=== PATIENT | female | born 1965 | race Caucasian/White ===

== ENCOUNTER 2016-08-09 08:17 | Inpatient (IN) | payer OTHER ==
[~2016-08-09] VITALS: Ht 157.5 cm; Wt 64.4 kg
[2016-08-09 08:26] VITALS: BP 104/60
--- NOTE | 2016-08-09 08:32 | NUR ---
Pt ambulated to bed 7 at this time.
[2016-08-09] MEDS ORDERED: ONDANSETRON 4 MG/2 ML VIAL IVP ONE (08:50)
[2016-08-09] MEDS ORDERED: NACL 0.9% 1,000 ML IV ONE (08:50)
[2016-08-09] MEDS ORDERED: fentaNYL 0.05 MG/ML VIAL IVP ONE (08:50)
--- NOTE | 2016-08-09 09:00 | NUR ---
AAO, COOPERATIVE PT TAKEN TO CT VIA WHEEL CHAIR BY EXPERIMENTAL DISPLAY BUILDER
--- NOTE | 2016-08-09 09:00 | NUR ---
PATIENT PRESENTS TO ED WITH W/C/O ABDOMINAL PAIN X3 DAYS; DENIES DIARRHEA; SKIN IS PINK/WARM/DRY; AAOX4 WITH EVEN AND STEADY GAIT; LUNGS CLEAR BL; HR EVEN AND REGULAR; PT DENIES ANY FEVER, CP, SOB, OR COUGH AT THIS TIME; PATIENT STATES PAIN OF 8/10 AT THIS TIME; VSS; PATIENT POSITIONED FOR COMFORT; HOB ELEVATED; BEDRAILS UP X2; BED DOWN. ER MD MADE AWARE OF PT STATUS.
[2016-08-09] MEDS ORDERED: POTASSIUM CHL 20 MEQ/NACL 0.9% 1,000 ML IV ONE (10:15)
[2016-08-09] MEDS ORDERED: cefTRIAXone 1,000 MG VIAL ONE (10:20)
[2016-08-09] MEDS ORDERED: PHENAZOPYRIDIN200 M3 PO (10:22)
[2016-08-09] MEDS ORDERED: TYLENOL WITH CO1 TA1 PO (10:22)
[2016-08-09] MEDS ORDERED: PRILOSEC OTC20 MG PO (10:22)
[2016-08-09] MEDS ORDERED: CIPRO250 M2 PO (10:22)
--- NOTE | 2016-08-09 10:57 | NUR ---
REPORT CALLED TO MARIANO ON MST.
--- NOTE | 2016-08-09 10:57 | NUR ---
Patient will be admitted to care of DR TELLEZ. Admited to [facility]. Will go to [id number]. Belongings list completed. Report to AMANDA QUINTANA.
[2016-08-09] MEDS ORDERED: fentaNYL 0.075 MG/HR PATCH TD SCH (11:00)
[2016-08-09 11:15] VITALS: BP 105/57
--- NOTE | 2016-08-09 11:15 | NUR ---
RECEIVED REPORT FROM ER NURSE. PT'S AT BEDSIDE. PT IS AAOX4, DENIES PAIN/DISCOMFORT AT THIS TIME. IV IS PATENT AND FLOWING. SKIN IS DRY AND INTACT. PT IS ON ROOM AIR, VITALS STABLE. ORIENTED PT TO HOSP ENVIRONMENT. CALL LIGHT WITHIN REACH. WILL CONTINUE TO MONITOR.
[2016-08-09 12:00] VITALS: BP 105/57
[2016-08-09] MEDS: NACL 0.9% 1,000 ML IV SCH ×2 (12:59→22:39)
[2016-08-09] MEDS ORDERED: ONDANSETRON 4 MG/2 ML VIAL IVP PRN (13:00)
[2016-08-09] MEDS ORDERED: PIPERACILLIN/TAZOBACTAM 3.375 GM in DEXTROSE 5% 50 ML IV SCH (13:00)
[2016-08-09] MEDS ORDERED: HYDROmorphone 1 MG/ML AMP IVP PRN (13:00)
[2016-08-09] MEDS ORDERED: LORazepam 2 MG/ML VIAL IVP PRN (13:00)
--- NOTE | 2016-08-09 14:37 | NUR ---
PATCH REMOVED, WILL CONTINUE TO MONITOR.
[2016-08-09 16:00] VITALS: BP 99/54
--- NOTE | 2016-08-09 17:13 | NUR ---
VS REMAIN STABLE. WILL CONTINUE TO MONITOR.
--- NOTE | 2016-08-09 19:30 | NUR ---
ENDORSED TO LATHE TURNER NURSE FOR CONTINUITY OF CARE.
--- NOTE | 2016-08-09 19:45 | NUR ---
RECEIVED PT IN STABLE CONDITION FROM AM NURSE. AWAKE,ALERT AND ORIENTED X4, UKRAINIAN SPEAKING. AMBULATORY. MED SURG PT. WITH FAMILY MEMBERS AT BEDSIDE. NO C/O ANY ABDOMINAL PAIN AT THIS TIME. HAS IVF INFUSING WELL ON THE RT AC #22. ANOTHER HL ON LT AC #20. PLAN OF CARE DISCUSSED AND VERBALIZED UNDERSTANDING. CALL LIGHT PLACED WITHIN EASY REACH. WILL CONTINUE TO MONITOR.
--- NOTE | 2016-08-09 19:45 | NUR ---
RECEIVED PT IN STABLE CONDITION FROM AM NURSEDemetria AWAKE,ALERT AN DORGRACE X4, Addendum: 08/09/16 at 1951 by Julissa Love RN CANCEL ABOVE NOTES.
[2016-08-09 20:00] VITALS: BP 106/59
--- NOTE | 2016-08-09 20:00 | NUR ---
HAS A TEMP 100.9 COOLING MEASURES DONE. WILL CONTINUE TO MONITOR.
[2016-08-09] MEDS: PIPER/TAZO 3.375GM/D5W PREMIX 50 ML IV SCH (20:47)
--- NOTE | 2016-08-09 21:00 | NUR ---
TEMP RECHECKED 100. STILL CONTINUE WITH COOLING MEASURES.
[2016-08-10 00:42] VITALS: BP 98/51
--- NOTE | 2016-08-10 00:42 | NUR ---
LATEST TEMP 99.5 (ORAL ). NO C/O ANY PAIN NOTED . WILL CONTINUE TO MONITOR.
--- NOTE | 2016-08-10 02:40 | NUR ---
PT IS AWAKE. NO C/O OF ANY DISCOMFORT NOR PAIN NOTED.
--- NOTE | 2016-08-10 04:15 | NUR ---
LATEST TEMP CHECKED RESULT 99.2 (ORAL). NO C/O PAIN NOTED.
[2016-08-10] MEDS: PIPER/TAZO 3.375GM/D5W PREMIX 50 ML IV SCH ×3 (04:32→20:17)
--- NOTE | 2016-08-10 06:48 | NUR ---
LAB CALLED FOR CRITICAL K LEVEL 2.9 ,WILL ABBEY HOWARD.
--- NOTE | 2016-08-10 06:53 | NUR ---
PAGED DR. TELLEZ. DR. LOPES WATER SOFTENER SERVICER. WILL WAIT FOR CALL BACK.
--- NOTE | 2016-08-10 07:16 | NUR ---
ENDORSED PT IN STABLE CONDITION TO AM NURSE.
--- NOTE | 2016-08-10 07:43 | NUR ---
RECEIVED REPORT FROM AMANDA EDUARDO. PT IS AAOX4. PT ON ROOM AIR WITH NO S/S OF DISTRESS NOTED. IV TO RIGHT AC #22 AND LEFT AC #20, PATENT AND INTACT. SKIN INTACT. NO N/V OR PAIN INDICATED. ALL SAFETY PRECAUTIONS IN PLACE, SIDE RAILSX2, BED IN LOW POSITION, AND CALL LIGHT WITHIN REACH. WILL CONTINUE TO MONITOR.
[2016-08-10 08:00] VITALS: BP 96/53
[2016-08-10] MEDS: NACL 0.9% 1,000 ML IV SCH ×2 (08:14→18:59)
--- NOTE | 2016-08-10 08:23 | NUR ---
PATIENT HAS BEEN SCREENED AND CATEGORIZED MODERATE NUTRITION RISK. PATIENT WILL BE SEEN WITHIN 3-5 DAYS OF ADMISSION. 08/11/16-08/13/[address]
[2016-08-10] MEDS: ENOXAPARIN 40 MG/0.4 ML SYR SUBQ SCH (08:28)
--- NOTE | 2016-08-10 08:30 | NUR ---
PT TOLERATED MEDS WELL. WILL CONTINUE TO MONITOR.
--- NOTE | 2016-08-10 08:34 | NUR ---
TALKED TO DR TELLEZ, NOTIFIED OF CRITICAL POTASSIUM AT 2.9. OK TO ADMINISTER 60 MEQ OF POTASSIUM IV WITH LIDOCAINE TO INFUSE OVER 6 HOURS. WILL FOLLOW UP ON ORDERS.
--- NOTE | 2016-08-10 09:08 | NUR ---
TALKED TO LINDY-PHARMACIST. PHARMACIST TO MODIFY POTASSIUM IV ORDER. WILL FOLLOW UP.
[2016-08-10] MEDS ORDERED: POTASSIUM CHLORIDE 60 MEQ, LIDOCAINE 1% 25 MG in NACL 0.9% 500 ML IV SCH (09:30)
--- NOTE | 2016-08-10 09:55 | NUR ---
PT TOLERATED MEDS WELL. WILL CONTINUE TO MONITOR.
--- NOTE | 2016-08-10 10:40 | NUR ---
FAMILY PRESENT AT BEDSIDE. NO DISTRESS NOTED. ALL NEEDS MET AT THIS TIME.
--- NOTE | 2016-08-10 12:36 | NUR ---
PT TOLERATED MEDS WELL. WILL CONTINUE TO MONITOR.
--- NOTE | 2016-08-10 12:43 | NUR ---
PAGED DR SMITH, AWAITING CALLBACK.
--- NOTE | 2016-08-10 13:00 | NUR ---
DR VÁZQUEZ IN TO SEE PT. SURGEON TO PERFORM LAP APPY. WILL FOLLOW UP ON ORDERS AND OBTAIN PT'S CONSENT.
[2016-08-10] MEDS ORDERED: SUCCINYLCHOLINE CHLORIDE 200 MG/10 ML VIAL IVP ONE (13:20)
[2016-08-10] MEDS ORDERED: ROCURONIUM 50 MG/5 ML VIAL IV ONE (13:20)
[2016-08-10] MEDS ORDERED: PROPOFOL 200 MG/20 ML VIAL IV ONE (13:20)
[2016-08-10] MEDS ORDERED: SEVOFLURANE 250 ML BTL INH ONE (13:20)
[2016-08-10] MEDS ORDERED: ONDANSETRON 4 MG/2 ML VIAL ONE (13:20)
[2016-08-10] MEDS ORDERED: DEXAMETHASONE 4 MG/ML VIAL ONE (13:20)
[2016-08-10] MEDS ORDERED: GLYCOPYRROLATE 0.2 MG/ML VIAL ONE (13:20)
--- NOTE | 2016-08-10 13:20 | NUR ---
PT TAKEN OUT OF UNIT TO SURGERY.
[2016-08-10] MEDS ORDERED: MIDAZOLAM 2 MG/2 ML VIAL ONE (13:31)
[2016-08-10] MEDS ORDERED: MEPERIDINE 50 MG/ML SYR ONE (13:32)
[2016-08-10] MEDS ORDERED: fentaNYL 0.05 MG/ML VIAL ONE (13:32)
[2016-08-10] MEDS: LACTATED RINGERS 1,000 ML IV SCH ×2 (13:56→22:16)
[2016-08-10] MEDS ORDERED: ONDANSETRON 4 MG/2 ML VIAL IVP PRN (14:00)
[2016-08-10] MEDS ORDERED: diphenhydrAMINE 50 MG/ML VIAL IVP PRN (14:00)
[2016-08-10] MEDS ORDERED: MEPERIDINE 25 MG/ML SYR IVP PRN (14:00)
[2016-08-10] MEDS ORDERED: HYDROmorphone 1 MG/ML AMP IVP PRN ×2 (14:00→15:40)
[2016-08-10] MEDS: BUPIVACAINE-MPF/EPI 0.5% 30 ML VIAL INJ ONE ×2 (14:07→15:18)
--- NOTE | 2016-08-10 14:07 | NUR ---
CM NOTE INITIAL REVIEW SENT TO [facility] FAX# [phone] ATTN: NOVEMBER # [phone]
--- NOTE | 2016-08-10 15:03 | NUR ---
ENDORSED CARE TO AMANDA KHOURY. PT IN STABLE CONDITION.
--- NOTE | 2016-08-10 15:29 | NUR ---
CALLED DR. SMITH'S OFFICE AND INFORMED THE CERAMIC CAPACITOR PROCESSOR THAT DR. MEZA WILL SEE PATIENT.
[2016-08-10 16:30] VITALS: BP 116/71
--- NOTE | 2016-08-10 16:30 | NUR ---
RECEIVED REPORT AND PT FROM OR. PT IS AWAKE, A/O X 4. NO S/S OF ACUTE DISTRESS OR DISCOMFORT. HUSEYIN DRAIN PRESENT. EXPLORATORY LAPROSCOPIC INCISION PRESENT. SURGICAL INCISION FROM OPEN APPENDECTOMY PRESENT. NGT TO LOW INTERMITTENT SUCTION. CALL LIGHT WITHIN REACH. WILL CONTINUE TO MONITOR.
--- NOTE | 2016-08-10 19:22 | NUR ---
ENDORSED REPORT TO DRONE SOFTWARE DEVELOPMENT ENGINEER AMANDA SAEED. PT IS AWAKE, FAMILY AT BEDSIDE. PT HAS NO S/S OF ACUTE DISTRESS OR DISCOMFORT. PT IN STABLE CONDITION. CALL LIGHT WITHIN REACH.
--- NOTE | 2016-08-10 19:28 | NUR ---
RECEIVED REPORT FROM IRAIDA RN, AT BEDSIDE. INITIAL ASSESSMENT AND BODY CHECK DONE. PATIENT AAO X 4, ABLE TO FOLLOW COMMAND AND MAKE NEEDS KNOWN AND AMBULATORY BY SELF WITH STEADY GAIT. PATIENT CURRENTLY LYING DOWN ON THE BED AND TALKING TO HER . NO S/S OF DISTRESS OR ANY POTENTIAL COMPLICATION NOTED. PATIENT DENIED OF PAIN AT THIS TIME. VERIFIED LT NG-TUBE PLACEMENT AND IT IS IN THE RIGHT PLACE; ATTACHED TO LOW INTERMITTENT SUCTION AND NO RESIDUAL OBTAINED. 2 BAND AIDS DRESSING ON LOWER ABDOMEN REMAINS CLEAN/DRY WITH HUSEYIN DRAIN DRAINING WITH 40 ML SEROSANGUINEOUS. DISCUSSED PLAN OF CARE, PAIN MANAGEMENT AND MEDICATION REGIMEN WITH PATIENT AND PATIENT VERBALIZED UNDERSTANDING. PLACED PATIENT ON SAFETY/ASPIRATION PRECAUTIONS AND WILL CONTINUE TO MONITOR. CALL LIGHT LEFT WITHIN REACH.
[2016-08-10 20:00] VITALS: BP 119/75
--- NOTE | 2016-08-10 21:25 | NUR ---
ADMINISTERED DUE MEDICATIONS MD'S ORDERED WITH EDUCATION GIVEN. PATIENT COMPLYING WITH MEDICATION AND RESTING COMFORTABLY IN BED. ALL NEEDS ARE ATTENDED. KEPT PATIENT IN COMFORTABLE POSITION/WARM AND WILL CONTINUE TO MONITOR.
[2016-08-11] VITALS: BP 113/69
--- NOTE | 2016-08-11 00:27 | NUR ---
PATIENT RESTED COMFORTABLY IN BED, EASILY AROUSED AND REMAINED IN STABLE CONDITION. NO DRESSING CHANGE REQUIRED AT THIS TIME. WILL CONTINUE TO MONITOR.
[2016-08-11] MEDS: NACL 0.9% 1,000 ML IV SCH ×2 (01:17→12:40)
--- NOTE | 2016-08-11 02:00 | NUR ---
ASSISTED PATIENT TO THE RESTROOM TO VOID AND WALKED BACK TO BED SAFELY. PATIENT TOLERATED ACTIVITY WELL. CHANGED THE BEDSHEET AND KEPT PATIENT WARM. WILL CONTINUE TO MONITOR.
[2016-08-11] MEDS: PIPER/TAZO 3.375GM/D5W PREMIX 50 ML IV SCH ×3 (04:08→20:40)
--- NOTE | 2016-08-11 05:00 | NUR ---
PATIENT IS CLINICALLY STABLE WITHOUT S/S OF DISTRESS NOTED. WILL CONTINUE TO MONITOR.
[2016-08-11] MEDS: LACTATED RINGERS 1,000 ML IV SCH (06:31)
--- NOTE | 2016-08-11 07:12 | NUR ---
ENDORSED PLAN OF CARE TO AMANDA SHAH, AT BEDSIDE. PATIENT RESTED WELL THROUGHOUT THE SHIFT AND REMAINED IN STABLE CONDITION. NO APPARENT DISTRESS NOTED.
--- NOTE | 2016-08-11 07:30 | NUR ---
RECEIVED REPORT FROM WORLD RENOWNED CHEF AND RESTAURANT OWNER NURSE CHRISTOPHE AT BEDSIDE FOR CONTINUITY OF CARE. PATIENT IS AWAKE, ALERT, ORIENTED X4. IV ON THE LEFT AC INTACT AND PATENT WITH NS INFUSING AT 100ML/HR. OTHER IV ON THE RIGHT AC SALINE LOCK, INTACT AND PATENT. INITIAL ASSESSMENT DONE. NG- TUBE IN PLACED TO THE LEFT NARES. INTACT AND PATENT ON INTERMITTENT SUCTION. [address] ON THE ABDOMEN. INTACT AND DRY S/P LAP APPY. ON ROOM AIR NO S/S OF SOB. VITALS TAKEN AND WITHIN THE NORMAL LIMIT. PATIENT DENIED ANY PAIN. SAFETY CHECKED DONE AND WILL CONTINUE TO MONITOR. CALL LIGHT WITHIN REACH.
[2016-08-11 07:59] VITALS: BP 128/72
[2016-08-11] MEDS: ENOXAPARIN 40 MG/0.4 ML SYR SUBQ SCH (09:13)
--- NOTE | 2016-08-11 09:15 | NUR ---
DUE MED GIVE, PATIENT TOLERATED WELL. WILL CONTINUE TO MONITOR.
--- NOTE | 2016-08-11 10:00 | NUR ---
PATIENT IS CLEANED. COMPLAINED NO PAIN. WILL CONTINUE TO MONITOR.
--- NOTE | 2016-08-11 11:32 | NUR ---
CM NOTE CONCURRENT REVIEW SENT TO [facility] FAX# [phone] ATTN: NOVEMBER # [phone]
--- NOTE | 2016-08-11 12:43 | NUR ---
ISAK SIMPSON. ASSISTED PATIENT TO THE BATHROOM AND BACK TO BED. STABLE GAIT.
--- NOTE | 2016-08-11 13:22 | NUR ---
PATIENT LYING IN BED RESTING. NO S/S OF DISTRESS. CALL LIGHT WITHIN REACH.
--- NOTE | 2016-08-11 15:03 | NUR ---
PATIENT IS ASLEEP, NO S/S OF DISTRESS. WILL CONTINUE TO MONITOR.
--- NOTE | 2016-08-11 15:34 | NUR ---
NG-TUBE REMOVED, CATH END INTACT. NO S/S OF BLEEDING. PATIENT TOLERATED WELL AND DENIED ANY PAIN. WILL CONTINUE TO MONITOR.
[2016-08-11 16:00] VITALS: BP 122/72
[2016-08-11] MEDS: DEXT 5% / NACL 0.45% 1,000 ML IV SCH (16:26)
--- NOTE | 2016-08-11 16:43 | NUR ---
VITALS TAKEN AND WITHIN THE NORMAL LIMIT. PATIENT DENIED ANY PAIN AT THIS TIME. CALL LIGHT WITHIN REACH.
--- NOTE | 2016-08-11 18:21 | NUR ---
RESTING IN BED, NO COMPLAINED OF ANY PAIN AT THIS TIME. HUSEYIN DRAINAGE EMPTIED WITH DRAINAGE OF 30ML. WILL CONTINUE TO MONITOR. CALL LIGHT WITHIN REACH
--- NOTE | 2016-08-11 19:10 | NUR ---
RECEIVED REPORT AT BEDSIDE FROM AMANDA RESTREPO. INITIAL ASSESSMENT COMPLETED. PT AAOX4. PT AMBULATORY. PT HAS IV TO LEFT AC G 20 INFUSING FLUIDS WELL AND RIGHT AC 22 SL. PT HAS TWO ABDOMINAL DRESSINGS S/P LAP APPY AND A HUSEYIN DRAIN. SCDS ON. ORIENTED PT TO ROOM AND SURROUNDINGS AND USE OF CALL LIGHT. FAMILY AT BEDSIDE. EXPLAINED PLAN OF CARE TO PT AND SHE VERBALIZES UNDERSTANDING. SAFETY MEASURES IN PLACE, WILL CONTINUE TO MONITOR PT.
--- NOTE | 2016-08-11 19:30 | NUR ---
REPORT GIVEN TO TRAVEL INFORMATION CENTER SUPERVISOR NURSE OTTO AT BEDSIDE FOR CONTINUITY OF CARE. PATIENT ON STABLE CONDITION AND ALL NEEDS ARE MET AT THIS TIME.
--- NOTE | 2016-08-11 20:43 | NUR ---
2100 ZOSYN INFUSING NOW. PT STABLE, RESTING IN BED. CALL LIGHT WITHIN REACH.
--- NOTE | 2016-08-11 23:30 | NUR ---
ASSISTED PT TO THE RESTROOM, PT STABLE, CALL LIGHT WITHIN REACH.
[2016-08-12] VITALS: BP 121/75
--- NOTE | 2016-08-12 00:23 | NUR ---
CHECKED PT'S VS. VS STABLE. PT DENIES PAIN. CALL LIGHT WITHIN REACH.
--- NOTE | 2016-08-12 02:21 | NUR ---
PT'S SURGICAL DRESSING CHANGED. PT TOLERATED IT WELL. CALL LIGHT WITHIN REACH. WILL CONTINUE TO MONITOR PT.
[2016-08-12] MEDS: DEXT 5% / NACL 0.45% 1,000 ML IV SCH ×2 (04:26→16:56)
[2016-08-12] MEDS: PIPER/TAZO 3.375GM/D5W PREMIX 50 ML IV SCH ×3 (04:26→20:24)
--- NOTE | 2016-08-12 04:33 | NUR ---
0500 ZOSYN INFUSING AT THIS TIME. ASSISTED PT TO AMBULATE TO THE RESTROOM. PT BACK IN BED RESTING COMFORTABLY, CALL LIGHT WITHIN REACH.
--- NOTE | 2016-08-12 05:06 | NUR ---
AUDITOR/QUALITY AT BEDSIDE, DRAWING MORNING LABS. CALL LIGHT WITHIN REACH.
--- NOTE | 2016-08-12 07:05 | NUR ---
ENDORSED PT IN STABLE CONDITION TO AMANDA SHAH FOR CONTINUITY OF CARE.
--- NOTE | 2016-08-12 07:20 | NUR ---
RECEIVED REPORT FROM SHREDDED FILLER HOPPER FEEDER NURSE OTTO AT BEDSIDE FOR CONTINUITY OF CARE. PATIENT IS AWAKE, ALERT, ORIENTED X4. IV ON THE LEFT AC INTACT AND PATENT WITH D5 1/2 NS 80ML/HR. OTHER IV ON THE RIGHT AC SALINE LOCK, INTACT AND PATENT. INITIAL ASSESSMENT DONE. 2 INCISION ON THE ABDOMEN AND BAND AIRD IN PLACE. INTACT AND DRY S/P LAP APPY. ON ROOM AIR NO S/S OF SOB. VITALS TAKEN AND WITHIN THE NORMAL LIMIT. PATIENT DENIED ANY PAIN. SAFETY CHECKED DONE AND WILL CONTINUE TO MONITOR. CALL LIGHT WITHIN REACH.
[2016-08-12 07:47] VITALS: BP 122/72
[2016-08-12] MEDS: ENOXAPARIN 40 MG/0.4 ML SYR SUBQ SCH (08:34)
--- NOTE | 2016-08-12 09:00 | NUR ---
MED DUE GIVEN. PATIENT TOLERATED WELL. WILL CONTINUE TO MONITOR. CALL LIGHT WITHIN REACH.
--- NOTE | 2016-08-12 10:13 | NUR ---
CM NOTE CONCURRENT REVIEW SENT TO [facility] FAX#[phone] ATTN: NOVEMBER # [phone]
--- NOTE | 2016-08-12 11:01 | NUR ---
TALKED TO DR. NAVARRO INFORMED HIM OF THE KUB RESULT AND HE STATE TO KEEP THE PATIENT FOR 2 MORE DAYS TO CONTINUE WITH ANTIBIOTIC DUE TO ELEVATED WHITE BLOOD COUNT. WILL INFORM THE PATIENT AND WILL CONTINUE TO MONITOR.
--- NOTE | 2016-08-12 11:29 | NUR ---
INFORMED PATIENT THAT SHE WILL NOT BE DISCHARGED TODAY. PATIENT MADE AWARE THAT DR. NAVARRO ORDER TO KEEP HER FOR 2 MORES FOR ANTIBIOTIC FOR ELEVATED WHITE BLOOD CELLS. WILL CONTINUE TO MONITOR. FAMILY AT BEDSIDE.
--- NOTE | 2016-08-12 13:00 | NUR ---
WOUND ASSESSMENT AND DRESSING CHANGE DONE. NO ODOR, MINIMAL DRAINAGE. PATIENT DENIED ANY PAIN. WILL CONTINUE TO MONITOR.
--- NOTE | 2016-08-12 15:48 | NUR ---
VITALS TAKEN AND WITHIN NORMAL LIMIT. DR. MEZA SEEN PATIENT AND STATE PATIENT WILL STILL BE FULL LIQUID TONIGHT AND REGULAR DIET AND REMOVED HUSEYIN DRAINAGE TOMORROW. POSSIBLE D/C TOMORROW.
[2016-08-12 15:52] VITALS: BP 124/76
--- NOTE | 2016-08-12 17:39 | NUR ---
PATIENT IS ASLEEP. NO S/S OF DISTRESS. DAUGHTER BY THE BEDSIDE. WILL CONTINUE TO MONITOR.
--- NOTE | 2016-08-12 17:47 | NUR ---
EMPTIED HUSEYIN DRAINAGE TOTAL OUTPUT OF 60ML. WILL CONTINUE TO MONITOR.
[2016-08-12 17:55] VITALS: BP 123/72
--- NOTE | 2016-08-12 19:11 | NUR ---
REPORT GIVEN TO CHROME TANNING DRUM OPERATOR NURSE MANAS FOR CONTINUITY OF CARE. PATIENT IS AWAKE AND ALERT, IN STABLE CONDITION. ALL NEEDS MET AT THIS TIME.
--- NOTE | 2016-08-12 19:13 | NUR ---
PT IS CURRENTLY AWAKE ALERT ORIENTED NORWEGIAN SPEAKING, RESTING IN BED,HAS ABD INCISIONS COVERED WITH DRESSINGS AND HAS A HUSEYIN WITH SCANT AMOUNT OF SEROSANGUINOUS DRAINAGE.PT ENCOURAGED TO AMBULATE PT STATES,"I HAVE BEEN AMBULATING DURING THE DAY."PATIENT HAS SCD'S AT BEDSIDE.PT DENIES ANY PAIN OR N/V AT THIS TIME WILL CONTINUE TO MONITOR FAMILY WITH PATIENT.CALL LIGHT WITHIN REACH.
--- NOTE | 2016-08-12 19:30 | NUR ---
Patient's Plan of Care was discussed and reviewed with CAR EXAMINER: GAURI Curiel
[2016-08-12 20:08] VITALS: BP 124/79
--- NOTE | 2016-08-12 21:40 | NUR ---
PT RESTING IN BED WALKED A FEW STEPS AND THEN SAID SHE WAS READY TO GO TO BED.IVF WAS RECONNECTED.IVF INFUSING WELL IV SITE PATENT.WILL CONTINUE TO MONITOR.
--- NOTE | 2016-08-12 23:55 | NUR ---
PT GETTING READY TO SLEEP,I ASKED THE PATIENT IF SHE IS HAVING PAIN PT STATES,"NO."I ENCOURAGED THE PATIENT TO CALL IF SHE NEEDS PAIN MEDICATION OR ANY ASSISTANCE.PT VERBALIZES UNDERSTANDING.PT REFUSED TO HAVE THE SEQUENTIALS APPLIED I EXPLAINED THAT THE PURPOSE FOR THE SCD'S ARE FOR DVT PREVENTION AND HELP PROMOTE CIRCULATION BUT,PT STILL REFUSED.CALL LIGHT WITHIN REACH WILL CONTINUE TO MONITOR.
--- NOTE | 2016-08-13 02:10 | NUR ---
PT IS CURRENTLY SLEEPING NO PAIN OR DISCOMFORT NOTED.WILL CONTINUE TO MONITOR.
--- NOTE | 2016-08-13 03:59 | NUR ---
PT SLEEPING,IVF INFUSING WELL WILL CONTINUE TO MONITOR.
[2016-08-13] MEDS: PIPER/TAZO 3.375GM/D5W PREMIX 50 ML IV SCH ×2 (04:26→12:26)
[2016-08-13] MEDS: DEXT 5% / NACL 0.45% 1,000 ML IV SCH ×2 (05:15→11:48)
[2016-08-13] MEDS ORDERED: CEPHALEXIN500 M2 PO ×2 (05:19→05:27)
[2016-08-13] MEDS ORDERED: KEFLEX250 MG PO ×2 (05:41→05:42)
[2016-08-13 05:44] VITALS: BP 124/70
--- NOTE | 2016-08-13 05:46 | NUR ---
I TOOK A PICTURE OF HER ABDOMEN INCISION AND EMPTIED HUSEYIN 60ML OF YELLOW AND PINKISH DRAINAGE EMPTIED.SURGICAL SITES TO ABDOMEN WERE CLEANED WITH NS AND PAT DRY AND NEW DRESSINGS APPLIED.PT TOLERATED PROCEDURE WELL.
--- NOTE | 2016-08-13 06:26 | NUR ---
PT STABLE RESTING IN BED CALL I OFFERED PAIN MEDICATION DURING THE NIGHT PT STATES,"NO IM FINE." WAS ENCOURAGED TO CALL WHEN SHE FEELS LIKE SHE NEEDS PAIN MEDICATION AND PATIENT VERBALIZES UNDERSTANDING.
--- NOTE | 2016-08-13 07:24 | NUR ---
PT STABLE REPORT ENDORSED TO AMANDA BOOTH SHE WILL RESUME CARE OF THE PATIENT.
--- NOTE | 2016-08-13 07:25 | NUR ---
RECEIVED REPORT FROM LOADING MANAGER NURSE. PT IS AAOX4, DENIES PAIN/DISCOMFORT AT THIS TIME. DRESSING IS DRY AND INTACT, HUSEYIN DRAIN FLOWING VIA GRAVITY WITH SEROSANGUINEOUS BLOOD. VITALS STABLE, CALL LIGHT WITHIN REACH. WILL CONTINUE TO MONITOR.
[2016-08-13 08:02] VITALS: BP 128/76
--- NOTE | 2016-08-13 08:19 | NUR ---
PT REFUSED MEDICATION AND INSERTION OF NG-TUBE. WILL CONTINUE TO ENCOURAGE. Addendum: 08/13/16 at 0901 by Rebecca Wick RN ERROR
[2016-08-13] MEDS: ENOXAPARIN 40 MG/0.4 ML SYR SUBQ SCH (09:00)
--- NOTE | 2016-08-13 09:01 | NUR ---
PT ABBI MED WELL.
--- NOTE | 2016-08-13 11:38 | NUR ---
FAMILY AT BEDSIDE, ALL NEEDS MET AT THIS TIME.
--- NOTE | 2016-08-13 14:02 | NUR ---
VSS REMAIN STABLE.
--- NOTE | 2016-08-13 15:26 | NUR ---
D/C ORDER IN PER CONSULT AND ATTENDING PHYSICIAN. DISCHARGE INSTRUCTIONS EXPLAINED TO PT. PT'S DAUGHTER VERBALIZED UNDERSTANDING. PRESCRIPTIONS IN PT'S POSSESSION. PICTURE OF INCISION SITE TAKEN. HUSEYIN DRAIN REMOVED WITH 60 ML OF SEROSANGUINEOUS BLOOD REMOVED. PT ABBI WELL. NO BLEEDING AT SITE. IV REMOVED WITH CANNULA INTACT. WRISTBAND REMOVED. PT WAS WHEELED OUT OF HOSP IN STABLE CONDITION, ACCOMPANIED BY DAUGHTER.
== END 2016-08-13 15:23 | disposition home or self-care (01) | DRG 223 ==
LOC: MED 08:17 → MTU 10:19
PROVIDERS: ADMIT Hospitalist; ATTEND Hospitalist
PROC: 0DJD4ZZ Inspection of Lower Intestinal Tract, Percutaneous Endoscopic Approach (ICD-10-PCS; 2016-08-10)
PROC: 0DTJ0ZZ Resection of Appendix, Open Approach (ICD-10-PCS; principal; 2016-08-10 13:30)
DX: K35.2 Acute appendicitis with generalized peritonitis (principal); E87.1 Hypo-osmolality and hyponatremia; D72.825 Bandemia; E87.6 Hypokalemia; D64.9 Anemia, unspecified; Z53.31 Laparoscopic surgical procedure converted to open procedure